=== PATIENT | male | born 1955 | race Two or more races ===

== ENCOUNTER → 2018-08-19 | Day surgery (SDC) | payer OTHER ==
[2018-08-17 12:23] LABS: BASOPHILS % 0.5 % (0.0-1.0); EOSINOPHILS # (AUTO) 0.3 (0.0-0.4); EOSINOPHILS % 2.9 % (0.0-6.0); HEMATOCRIT 33.6 % (38.2-49.6); HEMOGLOBIN 11.4 g/dL (14.0-18.0); LYMPHOCYTES # (AUTO) 1.1 (1.0-3.2); LYMPHOCYTES % 12.3 % (18.0-39.1); MEAN CORPUSCULAR HEMOGLOBIN 30.3 pg (28-32); MEAN CORPUSCULAR HGB CONC 33.9 g/dL (31-35); MEAN CORPUSCULAR VOLUME 89.4 fL (81-99); MONOCYTES # (AUTO) 0.6 (0.2-0.8); MONOCYTES % 7.1 % (4.4-11.3); NEUTROPHILS # (AUTO) 6.7 (2.1-6.9); NEUTROPHILS % 76.9 % (38.7-80.0); PLATELET COUNT 185 x10e3/uL (140-360); RED BLOOD COUNT 3.76 x10e6/uL (4.3-5.7)
[~2018-08-19] MED LIST: BUMETANIDE PO; CALCITRIOL0.25 MCG PO; CARVEDILOL PO; FENTANYL CITRATE/PF 100MCG/2 ML INJ ONE; HUMALOG100 UNIT/3; HYDRALAZINE PO; HYOSCYAMINE SULFATE 0.5 MG/ML INJ ONE; ISOSORB MONO PO; LANTUS 3ML100 UNITS/; MIDAZOLAM HCL 2 MG/2 ML VIAL ONE; NIFEDIPINE PO; PANTOPRAZOLE 40 MG 10ML VIAL ONE; PROPOFOL IV EMULSION 10 MG/ML 50 ML VIAL ONE; ULORIC40 MG PO; XARELTO PO; ZETIA10 MG PO; [UNRECOGNIZED DRUG - CODE] PO
--- NOTE | 2018-08-19 18:51 | Operative Report ---
DATE OF PROCEDURE: August 19, 2018 REFERRING PHYSICIAN: Dr. Kayleen Soriano. PROCEDURES PERFORMED 1. Esophagogastroduodenoscopy with biopsies. 2. Colonoscopy with polypectomy and biopsies. INDICATIONS FOR ESOPHAGOGASTRODUODENOSCOPY: Iron deficiency anemia, history of bleeding ulcer. INDICATIONS FOR COLONOSCOPY: Colorectal cancer screening, iron deficiency anemia, guaiac positive stools. MEDICATION: Patient was done under MAC. Please see anesthesiologist's note. PROCEDURE: With the patient in left lateral decubitus position, a flexible fiberoptic Olympus gastroscope was introduced into the esophagus under direct visualization without any difficulty. There was some patchy erythema noted in distal esophagus. A minute tongue of velvety red mucosa was noted to extend proximally from the GE junction that was biopsied to rule out Jefferson's. The scope was then advanced with ease into the stomach. Mucosa overlying the antrum and the body revealed some patchy erythema and low-grade to moderate edema and biopsies were obtained and sent to stain for H. pylori. The pylorus was of normal contour and shape and was intubated with ease and the scope was advanced all the way to the 2nd portion of the duodenum. Biopsies were obtained from the proximal 2nd portion to rule out sprue. There was an approximately 5 mm submucosal nodule at distal bulb and that was biopsied. The scope was then withdrawn back into the stomach and retroflexed, and mucosa overlying the fundus and the cardia appeared to be within normal limits. The scope was then straightened out and was subsequently withdrawn. Patient tolerated the procedure well. IMPRESSION 1. Distal esophagitis, mild. 2. Rule out Jefferson's esophagus. 3. Gastritis, biopsied. Biopsies sent to stain for Helicobacter pylori. 4. Approximately 5 mm submucosal nodule, distal bulb, biopsied. 5. Rule out sprue. PLAN: Follow up histology. Initiate Protonix 40 mg 1 p.o. q. a.m. a.c. Patient was then turned around and after adequate lubrication of the anal canal, a flexible fiberoptic Olympus colonoscope was inserted into the rectum with ease and advanced all the way to the cecum. The scope was then withdrawn slowly. Mucosa overlying the cecum and ascending colon appeared to be within normal limits. One polyp was hot biopsied from the transverse colon. Two polyps were snared and 1 polyp was hot biopsied from the descending colon. Patchy mild inflammatory changes were noted in the left colon and random biopsies were obtained. Four polyps were hot biopsied from the sigmoid colon. Similar inflammatory changes were noted in the rectum and biopsies were obtained. The scope was then retroflexed into the distal rectum and moderate-size internal hemorrhoids were noted, none of which was actively bleeding. The scope was then straightened out and was subsequently withdrawn after securing an adequate stool specimen that was sent for the appropriate stool studies. Patient tolerated the procedure well. IMPRESSION 1. Transverse colon polyp, hot biopsied. 2. Descending colon polyps x3, two snared and one hot biopsied. 3. Mild patchy left-sided colitis. 4. Sigmoid colon polyps x4, hot biopsied. 5. Proctitis, mild, biopsies obtained. 6. Internal hemorrhoids, none actively bleeding. PLAN: Follow up histology. Follow up stool studies. Initiate VSL #3 1 p.o. q.d. and Bentyl 10 mg 1 p.o. t.i.d. A total of 8 polyps were removed. A followup colonoscopy might be of benefit in 2 to 3 years. Job#: [id number] RTY cc:KAYLEEN SORIANO MD
[2018-08-20 07:33] LABS: WBC,FECAL (FECAL LACTOFERRIN) NEGATIVE (NEGATIVE)
[2018-08-20 14:28] LABS: C DIFFICILE TOXIN A&B AMP PROB **POSITIVE** (NEGATIVE)
--- OUTSIDE RECORDS SUMMARY | 2018-08-29 12:44 | XMS REPORT ---
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 Allergies, Adverse Reactions, Alerts Allergy Name Allergy Type Status Severity Reaction(s) Onset Date Inactive Date Treating Clinician Comments Penicillins DA Active [place] 2018-04-20 00:00:00 Penicillins DA Active [place] 2018-04-12 00:00:00 Penicillins DA Active [place] 2014-08-07 00:00:00 tramadol DA Active [place] 2014-08-07 00:00:00 Medications This patient has no known medications.
== END | disposition home or self-care (01) ==
LOC: OR 12:24 → EDSEX 15:30
PROVIDERS: ATTEND Internal Medicine Gastroenterology
DX: D50.9 Iron deficiency anemia, unspecified (principal); D12.3 Benign neoplasm of transverse colon; D12.5 Benign neoplasm of sigmoid colon; K29.50 Unspecified chronic gastritis without bleeding; K51.50 Left sided colitis without complications; K21.0 Gastro-esophageal reflux disease with esophagitis; K31.89 Other diseases of stomach and duodenum; K62.89 Other specified diseases of anus and rectum; K59.00 Constipation, unspecified; K64.8 Other hemorrhoids; E78.00 Pure hypercholesterolemia, unspecified; E11.22 Type 2 diabetes mellitus with diabetic chronic kidney disease; I13.0 Hypertensive heart and chronic kidney disease with heart failure and stage 1 through stage 4 chronic kidney disease, or unspecified chronic kidney disease; N18.9 Chronic kidney disease, unspecified; I50.22 Chronic systolic (congestive) heart failure; G47.33 Obstructive sleep apnea (adult) (pediatric); M79.10 Myalgia, unspecified site; I48.91 Unspecified atrial fibrillation; I44.0 Atrioventricular block, first degree; Z88.0 Allergy status to penicillin; Z88.8 Allergy status to other drugs, medicaments and biological substances; Z01.810 Encounter for preprocedural cardiovascular examination; Z01.812 Encounter for preprocedural laboratory examination; Z79.4 Long term (current) use of insulin; Z79.02 Long term (current) use of antithrombotics/antiplatelets; Z68.32 Body mass index [BMI] 32.0-32.9, adult
CPT/HCPCS: 36415 ×2; 43239; 45380; 45384; 45385; 82948; 83630; 83993; 85025; 87045; 87177; 87328; 87493; 93005; C9113; J1980; J2250; J2704

== ENCOUNTER → 2022-09-17 | Day surgery (SDC) | payer MEDICARE, OTHER ==
[~2022-09-17] MED LIST changes: +BUMETANIDE1 MG PO; +CALCITONIN-SAL3.7 ML PO; +COREG3.125 MG PO; +DIFICID200 MG PO; -FENTANYL CITRATE/PF 100MCG/2 ML INJ ONE; +FLAGYL375 MG PO; +GENTAMICIN 80MG/NS 100 ML 100 ML IV ONE; +HYDRALAZINE HC100 MG PO; -HYOSCYAMINE SULFATE 0.5 MG/ML INJ ONE; +ISOSORBIDE MONO30 MG PO; +LANTUS 3ML100 UNITS/ SC; +LIDOCAINE HCL 2% LOCAL INJ 5 ML SDV VIAL INJ ONE; +LIPITOR10 MG PO; +METOCLOPRAMIDE HCL 10 MG/2ML VIAL ONE; +NIFEDIPINE ER30 M1 PO; -PANTOPRAZOLE 40 MG 10ML VIAL ONE; +PANTOPRAZOLE SO40 MG PO; +POVIDONE IODINE 0.05% 0.05 % ML PO ONE; +PROPOFOL IV EMULSION 10 MG/ML 20 ML VIAL ONE; -PROPOFOL IV EMULSION 10 MG/ML 50 ML VIAL ONE; +SODIUM CHLORIDE 0.9% 500ML 500 ML ONE; +VP-VITE RX TAB1 EACH PO; +humalog SC
[2022-09-17 14:32] LABS: BASOPHILS % 0.4 % (0.0-1.0); EOSINOPHILS # (AUTO) 0.4 (0.0-0.4); EOSINOPHILS % 3.9 % (0.0-6.0); HEMATOCRIT 35.5 % (38.2-49.6); HEMOGLOBIN 11.4 g/dL (14.0-18.0); LYMPHOCYTES # (AUTO) 0.8 (1.0-3.2); MEAN CORPUSCULAR HEMOGLOBIN 30.7 pg (28-32); MEAN CORPUSCULAR HGB CONC 32.1 g/dL (31-35); MEAN CORPUSCULAR VOLUME 95.7 fL (81-99); MONOCYTES # (AUTO) 0.7 (0.2-0.8); MONOCYTES % 6.9 % (4.4-11.3); NEUTROPHILS # (AUTO) 7.6 (2.1-6.9); NEUTROPHILS % 80.5 % (38.7-80.0); PLATELET COUNT 204 x10e3/uL (140-360); RED BLOOD COUNT 3.71 x10e6/uL (4.3-5.7); RED CELL DISTRIBUTION WIDTH 13.1 % (11.7-14.4)
[2022-09-17 14:42] LABS: INR 1.06
[2022-09-17 14:43] LABS: PARTIAL THROMBOPLASTIN TIME 38.5 seconds (23.8-35.5)
[2022-09-17 14:55] LABS: ANION GAP 19.4 mmol/L (8-16); CALCIUM 10.1 mg/dL (8.4-10.2); CREATININE, SERUM 6.41 mg/dL (0.72-1.25); POTASSIUM 4.4 mmol/L (3.5-5.1)
[2022-09-17 18:50] VITALS: BP 122/51
== END | disposition home or self-care (01) ==
LOC: OR 13:55
PROVIDERS: ATTEND Internal Medicine Gastroenterology
DX: Z09 Encounter for follow-up examination after completed treatment for conditions other than malignant neoplasm (principal); D12.0 Benign neoplasm of cecum; D12.5 Benign neoplasm of sigmoid colon; K59.00 Constipation, unspecified; K64.8 Other hemorrhoids; G47.33 Obstructive sleep apnea (adult) (pediatric); E11.22 Type 2 diabetes mellitus with diabetic chronic kidney disease; I13.2 Hypertensive heart and chronic kidney disease with heart failure and with stage 5 chronic kidney disease, or end stage renal disease; N18.6 End stage renal disease; I50.22 Chronic systolic (congestive) heart failure; Z88.0 Allergy status to penicillin; Z88.8 Allergy status to other drugs, medicaments and biological substances; Z99.2 Dependence on renal dialysis; Z79.4 Long term (current) use of insulin; Z79.899 Other long term (current) drug therapy; Z68.27 Body mass index [BMI] 27.0-27.9, adult
CPT/HCPCS: 36415; 45380; 45385; 80048; 82948; 85025; 85610; 85730; 88305; 93005; J1580; J2001; J2250; J2704; J2765; J7040; 45378

== ENCOUNTER → 2022-10-29 | Day surgery (SDC) | payer MEDICARE, OTHER ==
[~2022-10-29] MED LIST changes: +FENTANYL CITRATE/PF 100MCG/2 ML INJ ONE; -GENTAMICIN 80MG/NS 100 ML 100 ML IV ONE; +GLUCAGON FOR INJ 1 MG VIAL ONE; -METOCLOPRAMIDE HCL 10 MG/2ML VIAL ONE; -MIDAZOLAM HCL 2 MG/2 ML VIAL ONE; +PLAVIX75 MG PO; -POVIDONE IODINE 0.05% 0.05 % ML PO ONE; +PROPOFOL IV EMULSION 10 MG/ML 50 ML VIAL IV ONE
[2022-10-29 06:58] LABS: BASOPHILS # (AUTO) 0.1 (0.0-0.1); BASOPHILS % 0.5 % (0.0-1.0); EOSINOPHILS # (AUTO) 0.3 (0.0-0.4); EOSINOPHILS % 3.6 % (0.0-6.0); HEMATOCRIT 34.1 % (38.2-49.6); HEMOGLOBIN 10.9 g/dL (14.0-18.0); LYMPHOCYTES % 10.6 % (18.0-39.1); MEAN CORPUSCULAR HEMOGLOBIN 30.6 pg (28-32); MEAN CORPUSCULAR VOLUME 95.8 fL (81-99); MONOCYTES # (AUTO) 0.7 (0.2-0.8); MONOCYTES % 7.3 % (4.4-11.3); NEUTROPHILS # (AUTO) 7.4 (2.1-6.9); NEUTROPHILS % 77.6 % (38.7-80.0); PLATELET COUNT 190 x10e3/uL (140-360); RED BLOOD COUNT 3.56 x10e6/uL (4.3-5.7); RED CELL DISTRIBUTION WIDTH 12.7 % (11.7-14.4)
[2022-10-29 07:20] LABS: ANION GAP 18.7 mmol/L (8-16); CALCIUM 9.4 mg/dL (8.4-10.2); CREATININE, SERUM 6.33 mg/dL (0.72-1.25); POTASSIUM 3.7 mmol/L (3.5-5.1)
[2022-10-29 07:21] LABS: INR 1.03
[2022-10-29 10:30] VITALS: BP 139/95
== END | disposition home or self-care (01) ==
LOC: OR 06:35
PROVIDERS: ATTEND Internal Medicine Gastroenterology
DX: Z09 Encounter for follow-up examination after completed treatment for conditions other than malignant neoplasm (principal); K63.5 Polyp of colon; K64.8 Other hemorrhoids; Z71.3 Dietary counseling and surveillance; E11.22 Type 2 diabetes mellitus with diabetic chronic kidney disease; I12.0 Hypertensive chronic kidney disease with stage 5 chronic kidney disease or end stage renal disease; N18.6 End stage renal disease; I25.10 Atherosclerotic heart disease of native coronary artery without angina pectoris; E78.00 Pure hypercholesterolemia, unspecified; Z71.89 Other specified counseling; Z88.0 Allergy status to penicillin; Z88.8 Allergy status to other drugs, medicaments and biological substances; Z79.4 Long term (current) use of insulin; Z79.02 Long term (current) use of antithrombotics/antiplatelets; Z79.899 Other long term (current) drug therapy; Z68.28 Body mass index [BMI] 28.0-28.9, adult
CPT/HCPCS: 36415; 45380; 80048; 82948; 85025; 85610; 85730; 88305; J1610; J2001; J2704 ×2; J3010; J7040; 45378; 45384